=== PATIENT | female | born 1965 | race Two or more races ===

== ENCOUNTER 2021-04-10 14:01 | Outpatient (REF) | payer MEDICAID, SELFPAY ==
--- NOTE | ~2021-04-10 | XR_ITS ---
EXAMINATION: XR CHEST, 2 VIEWS CLINICAL INFORMATION: Mild persistent asthma. COMPARISON: None. TECHNIQUE: PA and lateral views of the chest were obtained. FINDINGS: Lungs are clear. No consolidation, pneumothorax, or pleural effusion. Cardiac and mediastinal contours are normal. Pulmonary vasculature is unremarkable. Trachea is midline. Mild degenerative disc disease in the thoracic spine. Ghost ECMO clips are present in the right upper quadrant. XR/XR chest 2V IMPRESSION: No acute cardiopulmonary findings.
--- NOTE | ~2021-04-10 | XR_ITS ---
EXAMINATION: XR KNEE, RIGHT XR KNEE, LEFT CLINICAL INFORMATION: Right knee pain. Left knee pain. COMPARISON: None. TECHNIQUE: AP, lateral, tunnel, and sunrise views of each knee. FINDINGS: RIGHT KNEE: No acute fracture or malalignment. Joint spaces appear well preserved. There are tiny marginal osteophytes at the medial tibial spine and patella. There is subtle articular cortical irregularity at the patella. No joint effusion. Enthesopathic spurring is present at the quadriceps tendon insertion on the patella. There is focal chronic periosteal bone formation along the posterolateral margin of the proximal fibular shaft which may be result of an old injury or enthesopathic spurring. No suspicious osseous lesions are identified. Soft tissues are unremarkable. LEFT KNEE: Tiny marginal osteophytes are present at the medial compartment and patella. No fracture or malalignment. Subtle subchondral cystic change and sclerosis are suspected at the lateral patellar facet. Joint spaces otherwise appear well preserved. No effusion. A small degenerative spur is present at the quadriceps tendon insertion on the patella. Mild soft tissue swelling. No suspicious osseous lesions. XR/XR knee LT 4V IMPRESSION: Mild osteoarthritis in the patellofemoral compartments bilaterally. More minimal arthritis in the medial compartments. Chronic periosteal bone formation at the right proximal fibular shaft which may be due to a prior injury or enthesopathic spurring. No aggressive osseous lesions are identified.
--- NOTE | ~2021-04-10 | XR_ITS ---
EXAMINATION: XR KNEE, RIGHT XR KNEE, LEFT CLINICAL INFORMATION: Right knee pain. Left knee pain. COMPARISON: None. TECHNIQUE: AP, lateral, tunnel, and sunrise views of each knee. FINDINGS: RIGHT KNEE: No acute fracture or malalignment. Joint spaces appear well preserved. There are tiny marginal osteophytes at the medial tibial spine and patella. There is subtle articular cortical irregularity at the patella. No joint effusion. Enthesopathic spurring is present at the quadriceps tendon insertion on the patella. There is focal chronic periosteal bone formation along the posterolateral margin of the proximal fibular shaft which may be result of an old injury or enthesopathic spurring. No suspicious osseous lesions are identified. Soft tissues are unremarkable. LEFT KNEE: Tiny marginal osteophytes are present at the medial compartment and patella. No fracture or malalignment. Subtle subchondral cystic change and sclerosis are suspected at the lateral patellar facet. Joint spaces otherwise appear well preserved. No effusion. A small degenerative spur is present at the quadriceps tendon insertion on the patella. Mild soft tissue swelling. No suspicious osseous lesions. XR/XR knee RT 4V IMPRESSION: Mild osteoarthritis in the patellofemoral compartments bilaterally. More minimal arthritis in the medial compartments. Chronic periosteal bone formation at the right proximal fibular shaft which may be due to a prior injury or enthesopathic spurring. No aggressive osseous lesions are identified.
== END 2021-04-10 14:02 | disposition home or self-care (01) ==
LOC: HO.XRAY 14:01
PROVIDERS: PCP Internal Medicine; Visit Provider Internal Medicine
DX: J45.30 Mild persistent asthma, uncomplicated (principal); M25.561 Pain in right knee; M25.562 Pain in left knee
CPT/HCPCS: 71046; 73564

== ENCOUNTER 2021-04-16 12:43 | Emergency (ER) | payer MEDICAID, SELFPAY ==
--- NOTE | ~2021-04-16 | CT_ITS ---
EXAMINATION: CT ABDOMEN AND PELVIS WITHOUT CONTRAST CLINICAL INFORMATION: Bilateral flank pain COMPARISON: None TECHNIQUE: Multidetector volumetric imaging was performed from the superior aspect of the liver through the pubic symphysis. Sagittal and coronal reformatted images were obtained on the technologist's workstation. This CT examination was performed using dose optimization techniques as appropriate, variously including the following: *Automated exposure control *Adjustment of mA and/or kV according to patient size (this includes techniques or standardized protocols for targeted exams where dose is matched to indication/reason for exam; i.e. extremities or head) *Use of iterative reconstruction technique DLP: 612 mGy-cm FINDINGS: LUNG BASES: Coronary artery calcifications are present. LIVER, GALLBLADDER, AND BILIARY TREE: The liver is normal in size, shape, and attenuation. No focal hepatic lesion or biliary ductal dilatation is present. Patient is status post cholecystectomy. PANCREAS: There is partial fatty atrophy of the pancreas. SPLEEN: Unremarkable. ADRENAL GLANDS: Unremarkable. KIDNEYS AND URETERS: No hydronephrosis or obstructing calculus identified bilaterally. No perinephric stranding. BLADDER: Minimally distended and not well evaluated. GASTROINTESTINAL TRACT: There are postoperative changes from gastric bypass surgery. No evidence of bowel obstruction. No significant bowel wall thickening. Moderate to large amount of stool is present. The appendix is unremarkable. No free fluid or free air is seen. ABDOMINAL WALL: No significant hernia is appreciated. LYMPH NODES: Normal. VASCULAR: Scattered atherosclerotic calcifications are present. PELVIC VISCERA: There is a right adnexal cyst measuring up to 4.6 cm. OSSEOUS STRUCTURES: Scattered degenerative changes are noted in the spine. CT/CT abdomen pelvis wo con IMPRESSION: 1. No hydronephrosis or obstructing calculus identified. 2. Status post gastric bypass surgery. No evidence of bowel obstruction. Moderate to large volume of stool. 3. Right adnexal cyst measuring up to 4.6 cm, likely ovarian and probably benign. Sonographic follow-up recommended in 3-6 months. 4. Coronary artery calcifications. Correlation with cardiac risk factors is recommended. Fleischner guidelines were followed.
[2021-04-16 15:20] VITALS: BP 121/84; PULSE 59; RESP 18; TEMP 36.8; O2SAT 100; BMI 33.4
[2021-04-16 17:00] LABS: MANUAL DIFF FLAG NO
[2021-04-16 17:01] LABS: Basophils Percent Auto 0.4 % (0-2); Eosinophils Absolute Auto 0.3 X10*3/uL (0.0-0.4); Eosinophils Percent Auto 3.5 % (0-4); Hemoglobin 11.3 g/dl (12.0-16.0); Imm Gran Abs Auto 0.03 X10*3/uL (0.00-0.03); Imm Gran Pct Auto 0.4 % (0.0-0.4); Lymphocytes Absolute Auto 3.6 X10*3/uL (1.2-4.9); Lymphocytes Percent Auto 49.8 % (20-40); Mean Corpuscular HGB Conc 33.2 g/dl (31.0-35.0); Mean Corpuscular Hemoglobin 30.2 pg (27.0-33.0); Mean Corpuscular Volume 90.9 fL (80.0-98.0); Mean Platelet Volume 11.3 fL (9.4-12.3); Monocytes Absolute Auto 0.5 X10*3/uL (0.1-1.2); Monocytes Percent Auto 6.8 % (2-11); Neutrophils Absolute Auto 2.8 x10*3/uL (2.0-8.3); Neutrophils Percent Auto 39.1 % (45-73); Platelet Count 202 X10*3/uL (160-400); Red Blood Count 3.74 X10*6/uL (4.20-5.50); Red Cell Distribution Width 13.2 % (11.0-16.0); White Blood Count 7.2 X10*3/uL (4.8-10.8)
[2021-04-16 17:22] LABS: Alanine Aminotransferase 18 U/L (0-31); Albumin Level 4.2 g/dL (3.5-5.0); Alkaline Phosphatase 77 U/L (39-117); Anion Gap 13 (12-20); Aspartate Amino Transferase 17 U/L (5-31); Bilirubin Total 0.4 mg/dL (0.0-1.0); Blood Urea Nitrogen 29 mg/dL (9-16); Calcium 9.8 mg/dL (8.4-10.2); Carbon Dioxide 24 mmol/L (22-29); Chloride 109 mmol/L (96-108); Creatinine Clr Calc Pharmacy 36.5; Estimated Glomerular Filt Rate 36; Glucose Random 85 mg/dL (60-115); Lipase 37 U/L (8-78); Potassium 4.2 mmol/L (3.3-5.1); Sodium 142 mmol/L (135-145); Total Protein 6.8 g/dL (6.5-8.0)
[2021-04-16 19:03] LABS: Appearance Urine CLEAR; Color Urine STRAW; Glucose Urine UA NEG (NEG); Leukocyte Esterase Urine NEG (NEG); Nitrite Urine NEG (NEG); PH 5.5 (5.0-8.0); UACC Culture Trigger NO; Urine Blood 1+ (NEG); Urine Ketones NEG (NEG); Urine Protein NEG (NEG-TRACE)
[2021-04-16 19:16] LABS: Amorphous Sediment Urine TRACE /LPF; Mucus Urine TRACE /LPF; Squamous Epithelial Cell Urine 1+ /LPF
--- NOTE | 2021-04-17 00:48 | ED.GENADULT ---
HPI - General Adult General Chief complaint: General Medical Stated complaint: Abnormal Labs Time Seen by Provider: 04/16/21 21:31 Source: patient Mode of arrival: ambulatory Limitations: language barrier (Patient's 1st language is Israeli, she does speak some [place], lang interpreter was used) History of Present Illness HPI narrative: 56-year-old female who states that she recently moved from [place] approximately 4 months prior who presents emergency department for evaluation of bilateral lower flank pain and abnormal kidney function. The patient states that she saw her new primary care doctor recently and had blood work. She was told that her kidney function was off. The patient was taking multiple medications in her provider advised her to stop taking all of her medications except for her metformin and her Seroquel at night. Patient states that she has continued to have bilateral flank pain. She states that the pain is an intermittent, dull to sharp pain which is 8/10 at its worst. She has had intermittent dizziness with nausea and vomiting. She states she has been feeling weak and fatigued. She denied frequency, urgency, dysuria or hematuria. She was concerned that her kidney function was getting worse therefore she came to the emergency department for evaluation. Related Data Allergies Allergy/AdvReac Type Severity Reaction Status Date / Time latex Allergy Rash Verified 04/16/21 15:19 Review of Systems Review of Systems: Yes all other systems are reviewed and are negative [facility] Past Medical History [facility] Narrative: Past medical history: Reviewed below. Past surgical history: Gastric bypass surgery 2015 at [facility]. Social history: She denies tobacco, alcohol and drug use. Medical History Bipolar 1 disorder Chronic constipation Depression Diabetes MARY (generalized anxiety disorder) GERD (gastroesophageal reflux disease) Hypertension Iron deficiency anemia Osteoarthritis of left knee Panniculitis Perimenopausal menorrhagia Social History Social History Advance Directives: No Advance Directives Information Provided: Yes Patient : No Physical Exam Vital Signs: Vital Signs: Last Vital Signs Temp 98.2 F 04/16/21 15:20 Pulse 59 04/16/21 15:20 Resp 18 04/16/21 15:20 BP 121/84 04/16/21 15:20 Pulse Ox 100 04/16/21 15:20 BMI result Body Mass Index 33.4 Const: General: cooperative and no acute distress Orientation/consciousness: oriented to person and oriented to place Limitations: no limitations HENMT: Head: Yes normal to inspection, Yes normocephalic and Yes atraumatic Ears: external ears normal General nose exam: Normal external nose present Face and sinus: Yes normal facial exam Mouth: Normal oral and palatal mucosa present Throat: Yes posterior oropharynx normal Eyes: General: appearance normal, both eyes and all related structures Pupils: Equal, round and reactive pupils present Neck: Neck: Yes normal visual inspection, Yes no lymphadenopathy, Yes trachea midline and Yes supple Chest: Chest palpation & inspection: normal inspection of the chest and normal palpation of entire chest wall Resp: Effort & Inspection: normal respiratory effort and able to speak in complete sentences Auscultation: clear to auscultation bilaterally Cardio: Rate: regular rate Rhythm: regular rhythm Heart sounds: S1 normal heart sound present, S2 normal heart sound present and no murmurs GI: Inspection: Yes normal to inspection Palpation (GI): Soft to palpation, nontender and no guarding Auscultation: normal bowel sounds Back/Spine/Pelvis: Other: [id number] bilateral CVA tenderness Skin: General skin exam: no rashes or lesions noted Neuro: General: oriented to person and oriented to place Cranial nerves: Yes CN's II-XII intact bilaterally and Yes Equal, round and reactive pupils present Cognition (Neuro): normal cognition Motor exam (neuro): 5/5 motor strength present throughout Extrem: General: Yes normal to inspection Psych: Appearance: grossly normal Speech and movement: Normal speech and movement present Affect: normal affect Attitude: cooperative Thought process: Normal thought process present Thought content: Normal thought content present Course Course Course Narrative: 56-year-old female who presents emergency department for evaluation of bilateral flank pain and abnormal kidney function. The patient's vital signs were normal with a blood pressure of 121/84. The patient's physical examination did reveal bilateral flank tenderness. Laboratory evaluation revealed mild anemia with an H&H of 11.3 and 34.0 with a normal MCV of 90.9. WBC was normal 7200. Comprehensive metabolic panel revealed an elevated chloride of 109, elevated BUN of 29 with an elevated creatinine of 1.49. GFR was 36. Urinalysis revealed negative protein, negative glucose, 1+ blood, negative nitrates negative leukocyte esterase. Microscopic revealed 1-4 RBCs, 1-4 WBCs, 1+ squamous cells no bacteria. Ordered a CT scan of the abdomen pelvis without IV contrast to evaluate the patient for renal obstruction/kidney stones. 0200: CT scan of the abdomen pelvis without IV contrast revealed no hydronephrosis or obstructing calculus identified. The the patient does have a right adnexal cyst measuring 4.6 cm likely ovarian in probably benign. Radiologist recommended ultrasound follow-up in 3-6 months. Patient also had coronary calcification noted. I did discuss this finding with the patient. The patient's kidney disease is most likely related to her hypertension and diabetes I did discuss this with her. I told it was important that she follow-up with her PCP and continue to manage her chronic medical conditions to prevent further kidney injury. The patient was discharged home. Medical Decision Making Lab Data Result diagrams: 04/16/21 16:54 04/16/21 16:54 Labs: Lab Results 04/16/21 04/16/21 04/16/21 Range/Units 16:54 16:54 18:44 WBC 7.2 (4.8-10.8) X10*3/uL RBC 3.74 L (4.20-5.50) X10*6/uL Hgb 11.3 L (12.0-16.0) g/dl Hct 34.0 L (37.0-47.0) % MCV 90.9 (80.0-98.0) fL MCH 30.2 (27.0-33.0) pg MCHC 33.2 (31.0-35.0) g/dl RDW 13.2 (11.0-16.0) % Plt Count 202 (160-400) X10*3/uL MPV 11.3 (9.4-12.3) fL Immature Gran % (Auto) 0.4 (0.0-0.4) % Neut % (Auto) 39.1 L (45-73) % Lymph % (Auto) 49.8 H (20-40) % [place] % (Auto) 6.8 (2-11) % Eos % (Auto) 3.5 (0-4) % Baso % (Auto) 0.4 (0-2) % Lymph # (Auto) 3.6 (1.2-4.9) X10*3/uL [place] # (Auto) 0.5 (0.1-1.2) X10*3/uL Eos # (Auto) 0.3 (0.0-0.4) X10*3/uL Baso # (Auto) 0.0 (0.0-0.2) X10*3/uL Abs Immat Gran (auto) 0.03 (0.00-0.03) X10*3/uL Absolute Neuts (auto) 2.8 (2.0-8.3) x10*3/uL Absolute Nucleated RBC 0.000 (0.0-0.012) X10*3/uL Nucleated RBC % (auto) 0.0 (0.0-0.2) /100WBC Sodium 142 (135-145) mmol/L Potassium 4.2 (3.3-5.1) mmol/L Chloride 109 H (96-108) mmol/L Carbon Dioxide 24 (22-29) mmol/L Anion Gap 13 (12-20) BUN 29 H (9-16) mg/dL Creatinine 1.49 H (0.5-1.4) mg/dL Estim Creat Clear Calc 36.5 Estimated GFR 36 Random Glucose 85 (60-115) mg/dL Calcium 9.8 (8.4-10.2) mg/dL Total Bilirubin 0.4 (0.0-1.0) mg/dL AST 17 (5-31) U/L ALT 18 (0-31) U/L Alkaline Phosphatase 77 (39-117) U/L Total Protein 6.8 (6.5-8.0) g/dL Albumin 4.2 (3.5-5.0) g/dL Lipase 37 (8-78) U/L Urine Color STRAW Urine Appearance CLEAR Urine pH 5.5 (5.0-8.0) Ur Specific [place] 1.020 (1.005-1.025) Urine Protein NEG (NEG-TRACE) MG/DL Urine Glucose (UA) NEG (NEG) MG/DL Urine Ketones NEG (NEG) MG/DL Urine Blood 1+ H (NEG) Urine Nitrite NEG (NEG) Ur Leukocyte Esterase NEG (NEG) Urine RBC 1-4 (0) /HPF Urine WBC 1-4 (0-4) /HPF Ur Squamous Epith Cells 1+ /LPF Calcium Phosphate Cryst /LPF Amorphous Sediment TRACE /LPF Urine Bacteria Not Reportable Urine Mucus TRACE /LPF 04/17/21 Range/Units 01:31 WBC (4.8-10.8) X10*3/uL RBC (4.20-5.50) X10*6/uL Hgb (12.0-16.0) g/dl Hct (37.0-47.0) % MCV (80.0-98.0) fL MCH (27.0-33.0) pg MCHC (31.0-35.0) g/dl RDW (11.0-16.0) % Plt Count (160-400) X10*3/uL MPV (9.4-12.3) fL Immature Gran % (Auto) (0.0-0.4) % Neut % (Auto) (45-73) % Lymph % (Auto) (20-40) % [place] % (Auto) (2-11) % Eos % (Auto) (0-4) % Baso % (Auto) (0-2) % Lymph # (Auto) (1.2-4.9) X10*3/uL [place] # (Auto) (0.1-1.2) X10*3/uL Eos # (Auto) (0.0-0.4) X10*3/uL Baso # (Auto) (0.0-0.2) X10*3/uL Abs Immat Gran (auto) (0.00-0.03) X10*3/uL Absolute Neuts (auto) (2.0-8.3) x10*3/uL Absolute Nucleated RBC (0.0-0.012) X10*3/uL Nucleated RBC % (auto) (0.0-0.2) /100WBC Sodium (135-145) mmol/L Potassium (3.3-5.1) mmol/L Chloride (96-108) mmol/L Carbon Dioxide (22-29) mmol/L Anion Gap (12-20) BUN (9-16) mg/dL Creatinine (0.5-1.4) mg/dL Estim Creat Clear Calc Estimated GFR Random Glucose (60-115) mg/dL Calcium (8.4-10.2) mg/dL Total Bilirubin (0.0-1.0) mg/dL AST (5-31) U/L ALT (0-31) U/L Alkaline Phosphatase (39-117) U/L Total Protein (6.5-8.0) g/dL Albumin (3.5-5.0) g/dL Lipase (8-78) U/L Urine Color STRAW Urine Appearance HAZY Urine pH 6.0 (5.0-8.0) Ur Specific [place] <= 1.005 (1.005-1.025) Urine Protein NEG (NEG-TRACE) MG/DL Urine Glucose (UA) NEG (NEG) MG/DL Urine Ketones NEG (NEG) MG/DL Urine Blood 1+ H (NEG) Urine Nitrite NEG (NEG) Ur Leukocyte Esterase 1+ H (NEG) Urine RBC 0-2 (0) /HPF Urine WBC 10-14 H (0-4) /HPF Ur Squamous Epith Cells 3+ /LPF Calcium Phosphate Cryst TRACE /LPF Amorphous Sediment /LPF Urine Bacteria 2+ Urine Mucus TRACE /LPF Discharge Plan Discharge Clinical Impression: Diabetic kidney disease Patient Disposition: Home, Self-Care Instructions: Diabetic Kidney Disease (ED) Additional Instructions: Your kidney numbers today were as follows: BUN 29 (normal range 9 to 16) Creatinine 1.49 (normal range 0.5-1.4) These numbers represent mild kidney injury and this is most likely caused by your chronic medical problems ( high blood pressure and diabetes) Your doctor and needs to make sure that your diabetes and your high blood pressure are under good control and this will help protect your kidneys from further injury. It is important that you stay hydrated and drink fluid throughout the day, this will also protect her kidneys. The CT scan of your abdomen pelvis without IV contrast did not reveal any significant abnormalities in your kidneys, there is no blockage of the drainage of your kidneys (hydronephrosis) and there was no kidney stones noted by the radiologist causing blockages. The CT scan did reveal a 4.6 cm right ovarian cyst. The radiologist recommended that you have an ultrasound of your ovaries in 3-6 months to follow this cyst and to make sure that it is not getting bigger. Follow-up with your doctor in 2 days. Please return to the emergency department if your symptoms get worse or if you develop any symptoms that are concerning to you.
[2021-04-17 01:36] LABS: Appearance Urine HAZY; Color Urine STRAW; Glucose Urine UA NEG (NEG); Leukocyte Esterase Urine 1+ (NEG); Nitrite Urine NEG (NEG); Specific Gravity - Urine <= 1.005 (1.005-1.025); UACC Culture Trigger YES; Urine Blood 1+ (NEG); Urine Ketones NEG (NEG); Urine Protein NEG (NEG-TRACE)
[2021-04-17 01:42] LABS: Bacteria Urine 2+ /LPF; Calcium Phosphate Crystals Ur TRACE /LPF; Mucus Urine TRACE /LPF; RBC Urine 0-2 /HPF (0); Squamous Epithelial Cell Urine 3+ /LPF
--- NOTE | 2021-04-17 02:21 | ED_ITS ---
HPI - General Adult General Chief complaint: General Medical Stated complaint: Abnormal Labs Time Seen by Provider: 04/16/21 21:31 Source: patient Mode of arrival: ambulatory Limitations: language barrier (Patient's 1st language is Cambodian, she does speak some Lao, diplomatic interpreter/translator was used) Related Data Allergies Allergy/AdvReac Type Severity Reaction Status Date / Time latex Allergy Rash Verified 04/16/21 15:19 PMFSH Past Medical History Medical History Bipolar 1 disorder Chronic constipation Depression Diabetes MARY (generalized anxiety disorder) GERD (gastroesophageal reflux disease) Hypertension Iron deficiency anemia Osteoarthritis of left knee Panniculitis Perimenopausal menorrhagia Social History Social History Advance Directives: No Advance Directives Information Provided: Yes Patient : No Physical Exam Vital Signs: Vital Signs: Last Vital Signs Temp 98.2 F 04/16/21 15:20 Pulse 59 04/16/21 15:20 Resp 18 04/16/21 15:20 BP 121/84 04/16/21 15:20 Pulse Ox 100 04/16/21 15:20 BMI result Body Mass Index 33.4 Medical Decision Making Lab Data Result diagrams: 04/16/21 16:54 04/16/21 16:54 Labs: Lab Results 04/16/21 04/16/21 04/16/21 Range/Units 16:54 16:54 18:44 WBC 7.2 (4.8-10.8) X10*3/uL RBC 3.74 L (4.20-5.50) X10*6/uL Hgb 11.3 L (12.0-16.0) g/dl Hct 34.0 L (37.0-47.0) % MCV 90.9 (80.0-98.0) fL MCH 30.2 (27.0-33.0) pg MCHC 33.2 (31.0-35.0) g/dl RDW 13.2 (11.0-16.0) % Plt Count 202 (160-400) X10*3/uL MPV 11.3 (9.4-12.3) fL Immature Gran % (Auto) 0.4 (0.0-0.4) % Neut % (Auto) 39.1 L (45-73) % Lymph % (Auto) 49.8 H (20-40) % [place] % (Auto) 6.8 (2-11) % Eos % (Auto) 3.5 (0-4) % Baso % (Auto) 0.4 (0-2) % Lymph # (Auto) 3.6 (1.2-4.9) X10*3/uL [place] # (Auto) 0.5 (0.1-1.2) X10*3/uL Eos # (Auto) 0.3 (0.0-0.4) X10*3/uL Baso # (Auto) 0.0 (0.0-0.2) X10*3/uL Abs Immat Gran (auto) 0.03 (0.00-0.03) X10*3/uL Absolute Neuts (auto) 2.8 (2.0-8.3) x10*3/uL Absolute Nucleated RBC 0.000 (0.0-0.012) X10*3/uL Nucleated RBC % (auto) 0.0 (0.0-0.2) /100WBC Sodium 142 (135-145) mmol/L Potassium 4.2 (3.3-5.1) mmol/L Chloride 109 H (96-108) mmol/L Carbon Dioxide 24 (22-29) mmol/L Anion Gap 13 (12-20) BUN 29 H (9-16) mg/dL Creatinine 1.49 H (0.5-1.4) mg/dL Estim Creat Clear Calc 36.5 Estimated GFR 36 Random Glucose 85 (60-115) mg/dL Calcium 9.8 (8.4-10.2) mg/dL Total Bilirubin 0.4 (0.0-1.0) mg/dL AST 17 (5-31) U/L ALT 18 (0-31) U/L Alkaline Phosphatase 77 (39-117) U/L Total Protein 6.8 (6.5-8.0) g/dL Albumin 4.2 (3.5-5.0) g/dL Lipase 37 (8-78) U/L Urine Color STRAW Urine Appearance CLEAR Urine pH 5.5 (5.0-8.0) Ur Specific [place] 1.020 (1.005-1.025) Urine Protein NEG (NEG-TRACE) MG/DL Urine Glucose (UA) NEG (NEG) MG/DL Urine Ketones NEG (NEG) MG/DL Urine Blood 1+ H (NEG) Urine Nitrite NEG (NEG) Ur Leukocyte Esterase NEG (NEG) Urine RBC 1-4 (0) /HPF Urine WBC 1-4 (0-4) /HPF Ur Squamous Epith Cells 1+ /LPF Calcium Phosphate Cryst /LPF Amorphous Sediment TRACE /LPF Urine Bacteria Not Reportable Urine Mucus TRACE /LPF 04/17/21 Range/Units 01:31 WBC (4.8-10.8) X10*3/uL RBC (4.20-5.50) X10*6/uL Hgb (12.0-16.0) g/dl Hct (37.0-47.0) % MCV (80.0-98.0) fL MCH (27.0-33.0) pg MCHC (31.0-35.0) g/dl RDW (11.0-16.0) % Plt Count (160-400) X10*3/uL MPV (9.4-12.3) fL Immature Gran % (Auto) (0.0-0.4) % Neut % (Auto) (45-73) % Lymph % (Auto) (20-40) % [place] % (Auto) (2-11) % Eos % (Auto) (0-4) % Baso % (Auto) (0-2) % Lymph # (Auto) (1.2-4.9) X10*3/uL [place] # (Auto) (0.1-1.2) X10*3/uL Eos # (Auto) (0.0-0.4) X10*3/uL Baso # (Auto) (0.0-0.2) X10*3/uL Abs Immat Gran (auto) (0.00-0.03) X10*3/uL Absolute Neuts (auto) (2.0-8.3) x10*3/uL Absolute Nucleated RBC (0.0-0.012) X10*3/uL Nucleated RBC % (auto) (0.0-0.2) /100WBC Sodium (135-145) mmol/L Potassium (3.3-5.1) mmol/L Chloride (96-108) mmol/L Carbon Dioxide (22-29) mmol/L Anion Gap (12-20) BUN (9-16) mg/dL Creatinine (0.5-1.4) mg/dL Estim Creat Clear Calc Estimated GFR Random Glucose (60-115) mg/dL Calcium (8.4-10.2) mg/dL Total Bilirubin (0.0-1.0) mg/dL AST (5-31) U/L ALT (0-31) U/L Alkaline Phosphatase (39-117) U/L Total Protein (6.5-8.0) g/dL Albumin (3.5-5.0) g/dL Lipase (8-78) U/L Urine Color STRAW Urine Appearance HAZY Urine pH 6.0 (5.0-8.0) Ur Specific [place] <= 1.005 (1.005-1.025) Urine Protein NEG (NEG-TRACE) MG/DL Urine Glucose (UA) NEG (NEG) MG/DL Urine Ketones NEG (NEG) MG/DL Urine Blood 1+ H (NEG) Urine Nitrite NEG (NEG) Ur Leukocyte Esterase 1+ H (NEG) Urine RBC 0-2 (0) /HPF Urine WBC 10-14 H (0-4) /HPF Ur Squamous Epith Cells 3+ /LPF Calcium Phosphate Cryst TRACE /LPF Amorphous Sediment /LPF Urine Bacteria 2+ Urine Mucus TRACE /LPF Discharge Plan Discharge Clinical Impression: Diabetic kidney disease Patient Disposition: Home, Self-Care Instructions: Diabetic Kidney Disease (ED) Additional Instructions: Your kidney numbers today were as follows: BUN 29 (normal range 9 to 16) Creatinine 1.49 (normal range 0.5-1.4) These numbers represent mild kidney injury and this is most likely caused by your chronic medical problems ( high blood pressure and diabetes) Your doctor and needs to make sure that your diabetes and your high blood pressure are under good control and this will help protect your kidneys from further injury. It is important that you stay hydrated and drink fluid throughout the day, this will also protect her kidneys. The CT scan of your abdomen pelvis without IV contrast did not reveal any significant abnormalities in your kidneys, there is no blockage of the drainage of your kidneys (hydronephrosis) and there was no kidney stones noted by the radiologist causing blockages. The CT scan did reveal a 4.6 cm right ovarian cyst. The radiologist recommended that you have an ultrasound of your ovaries in 3-6 months to follow this cyst an d to make sure that it is not getting bigger. Follow-up with your doctor in 2 days. Please return to the emergency department if your symptoms get worse or if you develop any symptoms that are concerning to you. Print Language: Cambodian
== END 2021-04-17 02:27 | disposition home or self-care (01) ==
PROVIDERS: Student in an Organized Health Care Education/Training Program; Emergency Provider Emergency Medicine Emergency Medical Services; PCP Internal Medicine
DX: E11.22 Type 2 diabetes mellitus with diabetic chronic kidney disease (principal); I12.9 Hypertensive chronic kidney disease with stage 1 through stage 4 chronic kidney disease, or unspecified chronic kidney disease; N18.9 Chronic kidney disease, unspecified
CPT/HCPCS: 36415; 74176; 80053; 81001; 81003; 83690; 85025; 87086; 99283; 99284

== ENCOUNTER 2021-05-01 10:21 | Outpatient (REF) | payer MEDICAID, SELFPAY ==
[2021-05-01 13:32] LABS: Binax Internal Control QC Valid; Binax Now Covid-19 Ag Positive (Negative)
== END 2021-05-01 10:22 | disposition home or self-care (01) ==
LOC: HO.LAB 10:21
PROVIDERS: Visit Provider Internal Medicine
DX: Z20.822 Contact with and (suspected) exposure to COVID-19 (principal)
CPT/HCPCS: C9803

== ENCOUNTER 2021-05-17 13:20 | Outpatient (REF) | payer MEDICAID, SELFPAY ==
--- NOTE | ~2021-05-17 | MM_ITS ---
EXAMINATION: MM SCREENING DIGITAL BREAST TOMOSYNTHESIS, BILATERAL CLINICAL INFORMATION: Screening. Asymptomatic. The lifetime risk of breast cancer based on the Tyrer-Cuzick Model is 6%. COMPARISON: Outside mammography: 09/22/2020 ([place], [place]). TECHNIQUE: Digital breast tomosynthesis is performed in both the craniocaudal and mediolateral oblique views along with computer-aided detection (CAD). Synthesized 2D images are generated from the tomosynthesis. FINDINGS: There are scattered areas of fibroglandular density (ACR BI-RADS breast composition Category b). There are no significant masses, abnormal calcifications, or other abnormalities. Parenchymal pattern is similar to previous outside exam. No significant changes. MM/MM tomosynthesis screening BI IMPRESSION: There are no significant changes from prior outside study. ASSESSMENT: BI-RADS 1: Negative RECOMMENDATION: Routine annual mammography screening. This patient's information was entered into a reminder system with a target due date for their next mammogram.
== END 2021-05-17 13:21 | disposition home or self-care (01) ==
LOC: HO.MAMMO 13:20
PROVIDERS: PCP Internal Medicine; Visit Provider Internal Medicine
DX: Z12.31 Encounter for screening mammogram for malignant neoplasm of breast (principal)
CPT/HCPCS: 77063; 77067

== ENCOUNTER → 2021-05-28 13:51 | Outpatient (BNVA) | payer MEDICAID, SELFPAY | PROVIDERS: PCP Internal Medicine; Visit Provider Physician Assistant | DX: M23.91 Unspecified internal derangement of right knee (principal); M23.92 Unspecified internal derangement of left knee | CPT/HCPCS: 99202 ==

== ENCOUNTER → 2021-06-01 08:04 | Outpatient (BNVA) | payer MEDICAID, SELFPAY | PROVIDERS: PCP Internal Medicine; Referring Provider Internal Medicine; Visit Provider Physician Assistant Surgical | DX: E66.9 Obesity, unspecified (principal); Z90.3 Acquired absence of stomach [part of]; Z68.33 Body mass index [BMI] 33.0-33.9, adult | CPT/HCPCS: 99202 ==

== ENCOUNTER 2021-06-19 14:50 | Outpatient (REF) | payer MEDICAID, SELFPAY ==
[2021-06-19 15:03] LABS: MANUAL DIFF FLAG NO
[2021-06-19 15:16] LABS: Basophils Percent Auto 0.5 % (0-2); Eosinophils Absolute Auto 0.2 X10*3/uL (0.0-0.4); Eosinophils Percent Auto 3.2 % (0-4); Hematocrit 32.7 % (37.0-47.0); Hemoglobin 10.7 g/dl (12.0-16.0); Imm Gran Abs Auto 0.01 X10*3/uL (0.00-0.03); Imm Gran Pct Auto 0.2 % (0.0-0.4); Lymphocytes Absolute Auto 2.1 X10*3/uL (1.2-4.9); Lymphocytes Percent Auto 36.3 % (20-40); Mean Corpuscular HGB Conc 32.7 g/dl (31.0-35.0); Mean Corpuscular Hemoglobin 29.1 pg (27.0-33.0); Mean Corpuscular Volume 88.9 fL (80.0-98.0); Mean Platelet Volume 11.2 fL (9.4-12.3); Monocytes Absolute Auto 0.5 X10*3/uL (0.1-1.2); Monocytes Percent Auto 8.6 % (2-11); Neutrophils Percent Auto 51.2 % (45-73); Platelet Count 194 X10*3/uL (160-400); Red Blood Count 3.68 X10*6/uL (4.20-5.50); Red Cell Distribution Width 12.6 % (11.0-16.0); White Blood Count 5.9 X10*3/uL (4.8-10.8)
[2021-06-19 15:23] LABS: Estimated Average Glucose 137 mg/dL; Hemoglobin A1c % 6.4 %
[2021-06-19 15:56] LABS: Anion Gap 14 (12-20); Blood Urea Nitrogen 29 mg/dL (9-16); C Reactive Protein 0.57 mg/dL (< or = 0.50); Calcium 9.4 mg/dL (8.4-10.2); Carbon Dioxide 23 mmol/L (22-29); Chloride 107 mmol/L (96-108); Cholesterol 119 mg/dL; Estimated Glomerular Filt Rate 42; Glucose Random 99 mg/dL (60-115); HDL Cholesterol 47 mg/dL; Iron 75 mcg/dL (30-160); LDL Cholesterol Calculated 51 mg/dl; Potassium 4.7 mmol/L (3.3-5.1); Sodium 139 mmol/L (135-145); Triglycerides 107 mg/dL
[2021-06-19 16:00] LABS: Percent Iron Saturation 24 % (15-50); Total Iron Binding Capacity 312 mcg/dL (228-428); Unsaturated Iron Binding 237 ug/dL
[2021-06-19 16:15] LABS: TSH reflex Free T4 0.68 uIU/mL (0.32-4.0); Vitamin D 25-OH Total 29.6 ng/mL (>30)
[2021-06-19 16:19] LABS: Folate > 20.0 ng/mL (> or = 4.0); Vitamin B12 581 pg/mL (200-900)
[2021-06-19 16:20] LABS: Ferritin 42 ng/mL (10-250)
[2021-06-21 15:06] LABS: Calcium (PTHI) 9.5 mg/dL (8.6-10.4); PTHI 36 pg/mL (14-64)
[2021-06-22 01:31] LABS: Zinc 48 mcg/dL (60-130)
[2021-06-23 20:36] LABS: Vitamin A 48 mcg/dL (38-98)
[2021-06-24 11:17] LABS: Vitamin B1 10 nmol/L (8-30)
== END 2021-06-19 14:51 | disposition home or self-care (01) ==
LOC: HO.CT 14:50
PROVIDERS: Absent Provider Physician Assistant; PCP Internal Medicine; Visit Provider Physician Assistant Surgical
DX: R10.11 Right upper quadrant pain (principal); E66.9 Obesity, unspecified; Z90.3 Acquired absence of stomach [part of]
CPT/HCPCS: 36415; 80048; 80061; 82306; 82607; 82728; 82746; 83036; 83540; 83970; 84425; 84443; 84590; 84630; 85025; 86140

== ENCOUNTER 2021-06-29 08:18 | Outpatient (REF) | payer MEDICAID, SELFPAY ==
--- NOTE | ~2021-06-29 | CT_ITS ---
EXAMINATION: CT ABDOMEN AND PELVIS WITH CONTRAST CLINICAL INFORMATION: Obesity COMPARISON: Previous CT of the abdomen and pelvis March 2021 TECHNIQUE: Multidetector volumetric images were obtained from the superior aspect of the liver through the pubic symphysis following administration 85 mL of Omnipaque 350 intravenous contrast. Sagittal and coronal reformatted images were obtained on the technologist's workstation. Oral contrast: Yes This CT examination was performed using dose optimization techniques as appropriate, variously including the following: *Automated exposure control *Adjustment of mA and/or kV according to patient size (this includes techniques or standardized protocols for targeted exams where dose is matched to indication/reason for exam; i.e. extremities or head) *Use of iterative reconstruction technique DLP: 464 mGy-cm FINDINGS: LUNG BASES: There are very small bilateral pleural effusions. There is dependent atelectasis at the right lung base. LIVER, GALLBLADDER, AND BILIARY TREE: The liver is suggestive of fatty infiltration. No focal liver lesion or biliary duct dilatation. The gallbladder has been removed. PANCREAS: Unremarkable. SPLEEN: Unremarkable. ADRENAL GLANDS: Unremarkable. KIDNEYS AND URETERS: The kidneys are normal in size, shape, and attenuation. No hydronephrosis, hydroureter, or calculi seen. No perinephric stranding. BLADDER: Unremarkable. GASTROINTESTINAL TRACT: There are postoperative changes from gastric bypass. There is fatty deposition in the wall of the right colon and proximal transverse colon. This is a nonspecific finding. There is stool seen in the distal colon. Small and large bowel is otherwise unremarkable. The appendix is unremarkable. ABDOMINAL WALL: No significant hernia is appreciated. LYMPH NODES: Normal. VASCULAR: Unremarkable. PELVIC VISCERA: There is a 4 cm right ovarian cyst. OSSEOUS STRUCTURES: There is degenerative disc disease at L5-S1. CT/CT abdomen pelvis w con IMPRESSION: Postoperative changes following gastric bypass. Constipation. Nonspecific fatty disposition deposition in the wall of the proximal colon. Fatty liver. Postcholecystectomy. 4 cm right ovarian cyst. Fleischner guidelines were followed.
[2021-06-29] MEDS: iohexoL 350 MG/ML 100 ML INFUS..BTL IV (10:57)
[2021-06-29] MEDS: Barium Sulfate Oral (Berry) 450 ML ORAL.SUSP 900 ML PO (10:58)
== END 2021-06-29 08:19 | disposition home or self-care (01) ==
LOC: HO.CT 08:18
PROVIDERS: Visit Provider Physician Assistant Surgical
DX: R10.11 Right upper quadrant pain (principal); E66.9 Obesity, unspecified; Z90.3 Acquired absence of stomach [part of]
CPT/HCPCS: 74177; Q9967

== ENCOUNTER → 2021-07-10 08:16 | Outpatient (BNVA) | payer MEDICAID, SELFPAY | PROVIDERS: PCP Internal Medicine; Visit Provider Dietitian, Registered | DX: Z13.89 Encounter for screening for other disorder (principal) ==

== ENCOUNTER → 2021-07-16 09:01 | Outpatient (BNVA) | payer MEDICAID, SELFPAY | PROVIDERS: PCP Internal Medicine; Visit Provider Anesthesiology | DX: M17.0 Bilateral primary osteoarthritis of knee (principal); G89.4 Chronic pain syndrome | CPT/HCPCS: 99202 ==

== ENCOUNTER → 2021-07-17 10:23 | Outpatient (BNVA) | payer MEDICAID, SELFPAY | PROVIDERS: PCP Internal Medicine; Referring Provider Internal Medicine; Visit Provider Physician Assistant Surgical | DX: E66.9 Obesity, unspecified (principal) | CPT/HCPCS: 99212 ==